=== PATIENT | male | born 1990 | race Two or more races ===

== ENCOUNTER 2023-09-18 09:15 | Emergency (ER) | payer MEDICAID, OTHER ==
[~2023-09-18] VITALS: Ht 182.9 cm; Wt 105.1 kg
[2023-09-18 10:25] VITALS: BP 149/84; PULSE 90; RESP 18; TEMP 98.1; O2SAT 96
[2023-09-18] MEDS ORDERED: IBUP-1454 PO (10:33)
== END 2023-09-18 10:38 | disposition home or self-care (01) ==
LOC: ER 09:15
DX: S63.502A Unspecified sprain of left wrist, initial encounter (principal); W18.30XA Fall on same level, unspecified, initial encounter; Y93.89 Activity, other specified; Y92.89 Other specified places as the place of occurrence of the external cause; Y99.8 Other external cause status
CPT/HCPCS: 73110

== ENCOUNTER 2024-05-14 11:39 | Emergency (ER) | payer OTHER, MEDICAID ==
[~2024-05-14] VITALS: Ht 182.9 cm; Wt 102.5 kg
[~2024-05-14 11:39] MED LIST: IBUP-1454 PO
--- NOTE | 2024-05-14 12:08 | ED.PDOC ---
HPI (NEURO) HPI Comments 34 year old male presents to the ED with chief complaint of seizure/dizziness. Patient reports that he was witnessed by his girlfriend to have had a tonic- clonic seizure lasting around a minute at 4am. Patient relays that he later on went to work and started to experience dizziness and nausea, so he was advised by his work to be cleared by the ED before he can return to work. Patient states his last seizure was last week and he is currently being seen by his Neurologist at [facility]. Patient notes he is taking Depakote and Vimpat. Patient denies any vomiting, headache, chest pain, numbness, weakness, or injury. Chief Complaint: Seizure Time Seen by MD: 12:01 Primary Care Provider: FERDINAND Reviewed Notes: Nurses Notes, Medications, Allergies Information Source: Patient Mode of Arrival: Ambulatory Severity: Moderate Dizziness/Weakness Severity: Unable to do activities Headache Severity: None Timing: Hours Duration: Since onset Prehospital treatment: None Seizure Quality: Tonic-clonic Seizure Location: Generalized Onset: At rest Circumstances: Spontaneous History of: Seizure Disorder Modifying factors: Nothing Past Medical History PAST MEDICAL HISTORY: Seizures Surgical History: Appendectomy, Cholecystectomy Family History Family History: Reviewed,noncontributory to illness Social History Smoker: Non-Smoker Alcohol: Denies ETOH Use Drugs: Marijuana Lives In: Home Constitutional: denies: chills, diaphoresis, fatigue, fever, malaise, sweats, weakness, others EENTM: denies: blurred vision, double vision, ear bleeding, ear discharge, ear drainage, ear pain, ear ringing, eye pain, eye redness, hearing loss, mouth pain, mouth swelling, nasal discharge, nose bleeding, nose congestion, nose pain, photophobia, tearing, throat pain, throat swelling, voice changes, others Respiratory: denies: cough, hemoptysis, orthopnea, SOB at rest, shortness of breath, SOB with excertion, stridor, wheezing, others Cardiovascular: denies: chest pain, dizzy spells, diaphoresis, Dyspnea on exertion, edema, irregular heart beat, left arm pain, lightheadedness, palpitations, PND, syncope, others Gastrointestinal: denies: abdomen distended, abdominal pain, blood streaked bowels, constipated, diarrhea, dysphagia, difficulty swallowing, hematemesis, melena, nausea, poor appetite, poor fluid intake, rectal bleeding, rectal pain, vomiting, others Genitourinary: denies: burning, dysuria, flank pain, frequency, hematuria, incontinence, penile discharge, penile sore, pain, testicle pain, testicle swelling, urgency, others Neurological: reports: dizziness, seizure; denies: fainting, headache, left sided numbness, left sided weakness, numbness, paresthesia, pre-existing deficit, right sided numbness, right sided weakness, speech problems, tingling, tremors, weakness, others Musculoskeletal: denies: back pain, gout, joint pain, joint swelling, muscle pain, muscle stiffness, neck pain, others Integumetry: denies: bruises, change in color, change in hair/nails, dryness, laceration, lesions, lumps, rash, wounds, others Allergic/Immunocompromised: denies: Difficulty Healing, Frequent Infections, Hives, Itching, others Hematologic/Lymphatic: denies: anemia, blood clots, easy bleeding, easy bruising, swollen glands, others Endocrine: denies: excessive hunger, excessive sweating, excessive thirst, excessive urination, flushing, intolerance to cold, intolerance to heat, unexplained weight gain, unexplained weight loss, others Psychiatric: denies: anxiety, bipolar disorder, depression, hopeless, panic disorder, schizophrenia, sleepless, suicidal, others All Other Systems: Reviewed and Negative Physical Exam General Appearance: Mild Distress HEENT: Normal ENT Inspection, Pharynx Normal, TMs Normal Neck: Full Range of Motion, Non-Tender, Normal, Normal Inspection Respiratory: Chest Non-Tender, Lungs Clear, No Accessory Muscle Use, No Respiratory Distress, Normal Breath Sounds Cardiovascular: No Edema, No JVD, No Murmur, No Gallop, Normal Peripheral Pulses, Regular Rate/Rhythm Breast Exam: Deferred Gastrointestinal: No Organomegaly, Non Tender, No Pulsatile Mass, Normal Bowel Sounds, Soft Genitalia: Deferred Pelvic: Deferred Rectal: Deferred Extremities: No calf tenderness, Normal capillary refill, Normal inspection, Normal range of motion, Non-tender, No pedal edema Musculoskeletal : Apperance: Normal Neurologic: Alert, credit collector II-XII nml as Tested, No Motor Deficits, Normal Affect, Normal Mood, No Sensory Deficits Cerebellar Function: Normal Reflexes: Normal Skin: Dry, Normal Color, Warm Lymphatic: No Adenopathy Was a procedure done? Was a procedure done?: No Differential Diagnosis (SZ) Seizure: Syncope, Other (No) General Weakness: CVA X-Ray, Labs, Meds, VS Vital Signs Date Time Temp Pulse Resp B/P (MAP) Pulse Ox O2 Delivery O2 Flow Rate FiO2 05/14/24 13:15 98.6 94 18 156/91 (112) 94 98.6 05/14/24 13:15 98 Room Air* 0 21 05/14/24 11:59 97.8 63 18 121/71 (88) 97 Lab Test 05/14/24 12:03 05/14/24 11:50 Range/Units White Blood Count 13.7 H 4.4-10.8 10^3/uL Red Blood Count 5.24 4.5-5.90 10^6/uL Hemoglobin 15.9 13.5-17.5 g/dL Hematocrit 46.7 41.0-53.0 % Mean Corpuscular Volume 89.1 80.0-100.0 fL Mean Corpuscular Hemoglobin 30.3 28.0-32.0 pg Mean Corpuscular Hemoglobin Concent 34.0 32.0-36.0 g/dL Red Cell Distribution Width 13.7 11.8-14.3 % Platelet Count 301 140-450 10^3/uL Mean Platelet Volume 7.9 6.9-10.8 fL Neutrophils (%) (Auto) 67.3 37.0-80.0 % Lymphocytes (%) (Auto) 28.0 10.0-50.0 % Monocytes (%) (Auto) 3.6 0.0-12.0 % Eosinophils (%) (Auto) 0.3 0.0-7.0 % Basophils (%) (Auto) 0.8 0.0-2.0 % Neutrophils # (Auto) 9.2 H 1.6-8.6 10 ^3/uL Lymphocytes # (Auto) 3.8 0.4-5.4 10 ^3/uL Monocytes # (Auto) 0.5 0-1.3 10 ^3/uL Eosinophils # (Auto) 0 0-0.8 10 ^3/uL Basophils # (Auto) 0.1 0-0.2 10 ^3/uL Nucleated Red Blood Cells 0.0 % Sodium Level 141 136-145 mmol/L Potassium Level 3.3 L 3.5-5.1 mmol/L Chloride Level 108 H 98-107 mmol/L Carbon Dioxide Level 25 20-31 mmol/L Anion Gap 8 5-15 Blood Urea Nitrogen 8 L 9-23 mg/dL Creatinine 0.99 0.700-1.30 mg/dL Glomerular Filtration Rate Calc 102 >90 mL/min BUN/Creatinine Ratio 8.1 L 10.0-20.0 Serum Glucose 106 74-106 mg/dL Calcium Level 9.9 8.7-10.4 mg/dL POC Glucose 121 H 70-106 mg/dl CT Head indicates: No acute intracranial abnormality. The CBC shows an elevated white blood cell count of 13.7 The chemistry panel is within normal limits The patient states that he is now signing out against medical advice We were unable to completely evaluate the patient because he states that he was leaving. Images Reviewed?: Images reviewed and evaluated by me Time of 1ST Reevaluation: 14:11 Reevaluation 1ST: Unchanged Patient Education/Counseling: Diagnosis, Treatment Family Education/Counseling: No Family Present Additional Information -Reviewed patient's previous visit(s): 09/18/23 for left wrist sprain - The following tests were ordered, and results were reviewed by me: Head CT, BMP, CBC - Additional information was gathered from interviewing the following independent Historian: None - I reviewed and agreed with the following test results read by other provider: Head CT - I discussed treatments and results with medical personnel and: patient Comprehensive systems review obtained and negative except for what is stated in the HPI. Departure 1 Departure Time of Disposition: 14:10 Impression: Primary Impression: Dizziness Disposition: 07 LEFT AGAINST MEDICAL ADVICE Condition: Fair Critical Care Note Critical Care Time?: No Stability Stability form required: No Heart Score Heart Score: Heart Score Response (Comments) Value History N/A 0 EKG N/A 0 Age N/A 0 Risk Factors N/A 0 Troponin N/A 0 Total 0 I personally scribed for DEVAN RAHMAN MD ([email or web address]) on 05/14/24 at 12:08. Elec tronically submitted by John Paul Godinez ([email or web address]). I personally scribed for DVEAN RAHMAN MD ([email or web address]) on 05/14/24 at 12:47. Jo-Ann ctronically submitted by John Paul Godinez ([email or web address]). DEVAN RAHMAN MD May 14, 2024 12:08
[2024-05-14 12:18] LABS: Basophils # (auto) 0.1 10 ^3/uL (0-0.2); Basophils % (auto) 0.8 % (0.0-2.0); Eosinophils # (auto) 0 10 ^3/uL (0-0.8); Eosinophils % (auto) 0.3 % (0.0-7.0); Hematocrit 46.7 % (41.0-53.0); Hemoglobin 15.9 g/dL (13.5-17.5); Lymphocytes # (auto) 3.8 10 ^3/uL (0.4-5.4); Mean Corpuscular Hemoglobin 30.3 pg (28.0-32.0); Mean Corpuscular Volume 89.1 fL (80.0-100.0); Monocytes # (auto) 0.5 10 ^3/uL (0-1.3); Monocytes % (auto) 3.6 % (0.0-12.0); Neutrophils # (auto) 9.2 10 ^3/uL (1.6-8.6); Neutrophils % (auto) 67.3 % (37.0-80.0); Platelet Count (auto) 301 10^3/uL (140-450); Red Blood Cells 5.24 10^6/uL (4.5-5.90); Red Cell Distribution Width 13.7 % (11.8-14.3); White Blood Cell 13.7 10^3/uL (4.4-10.8)
[2024-05-14 12:32] LABS: Anion Gap 8 (5-15); Carbon Dioxide 25 mmol/L (20-31); Sodium 141 mmol/L (136-145)
[2024-05-14 12:33] LABS: Calcium 9.9 mg/dL (8.7-10.4)
--- NOTE | 2024-05-14 12:34 | DVH ---
CT HEAD WITHOUT CONTRAST INDICATION: Dizziness and post seizure EXAM DATE: 05/14/2024 12:03 PM COMPARISON: None RADIATION DOSE: CTDIvol: 63 mGy, DLP: 1115 mGy*cm PROCEDURE: CT scans of the head were obtained from the vertex to the skull base. Sagittal and coronal reconstructions were provided. All CT scans at this medical facility are performed using dose modulation techniques as appropriate t o a performed exam including the following: Automated exposure control was utilized; adjustment of th e MA and/or KV according to patient size; and use of iterative reconstruction technique. FINDINGS: There is sulcal and ventricular prominence. The brainshows normal morphology and benson-whi te matter differentiation, without intracranial hemorrhage, extra-axial fluid collection, mass effect or acute large vessel infarct. The ventricles are normal in size. The basal cisterns are patent. The skull and visible facial bones are intact. There is a left maxillary sinus polyp or cyst. The parana jake sinuses, mastoid air cells and middle ear cavities are well-aerated. The soft tissues of the scal p are unremarkable. IMPRESSION: No acute intracranial abnormality.
[2024-05-14 12:35] LABS: Chloride 108 mmol/L (98-107); Potassium 3.3 mmol/L (3.5-5.1)
[2024-05-14 12:38] LABS: BUN/Creatinine Ratio 8.1 (10.0-20.0)
[2024-05-14 12:39] LABS: Blood Urea Nitrogen 8 mg/dL (9-23); Glucose 106 mg/dL (74-106)
[2024-05-14 13:15] VITALS: BP 156/91; PULSE 94; RESP 18; TEMP 98.6; O2SAT 98
== END 2024-05-14 13:55 | disposition left against medical advice (07) ==
LOC: ER 11:39
DX: R42 Dizziness and giddiness (principal); F12.90 Cannabis use, unspecified, uncomplicated; Z90.49 Acquired absence of other specified parts of digestive tract
CPT/HCPCS: 36415; 70450; 80048; 82947; 82962; 85025